=== PATIENT | female | born 1955 | race Hispanic/Latino ===

== ENCOUNTER 2022-10-11 06:15 | Observation (INO) | payer MEDICARE, OTHER ==
[~2022-10-11] VITALS: Ht 160 cm; Wt 59.9 kg
[~2022-10-11 06:15] MED LIST: ASPIR 8181 MG PO; ATORVASTATIN CA40 MG PO; CLOPIDOGREL75 MG PO; ISOSORBIDE MONO30 MG PO; NITROSTAT0.4 MG SL; TOPROL XL25 MG PO
[2022-10-11 06:39] LABS: BASOPHILS # (AUTO) 0.1 (0.0-0.1); EOSINOPHILS # (AUTO) 0.2 (0.0-0.4); EOSINOPHILS % 2.2 % (0.0-6.0); HEMATOCRIT 46.3 % (34.2-44.1); HEMOGLOBIN 14.6 g/dL (12.0-16.0); LYMPHOCYTES # (AUTO) 2.3 (1.0-3.2); LYMPHOCYTES % 32.9 % (18.0-39.1); MEAN CORPUSCULAR HEMOGLOBIN 29.6 pg (28-32); MEAN CORPUSCULAR HGB CONC 31.5 g/dL (31-35); MEAN CORPUSCULAR VOLUME 93.9 fL (81-99); MONOCYTES # (AUTO) 0.6 (0.2-0.8); MONOCYTES % 8.3 % (4.4-11.3); NEUTROPHILS # (AUTO) 3.9 (2.1-6.9); NEUTROPHILS % 55.2 % (38.7-80.0); PLATELET COUNT 264 x10e3/uL (140-360); RED BLOOD COUNT 4.93 x10e6/uL (3.6-5.1); RED CELL DISTRIBUTION WIDTH 12.8 % (11.7-14.4)
[2022-10-11] MEDS ORDERED: ASPIRIN 81 MG CHEW TAB PO ONE (06:45)
[2022-10-11] MEDS ORDERED: METOPROLOL TARTRATE 25 MG TAB PO ONE (06:45)
[2022-10-11] MEDS ORDERED: NITROGLYCERIN 2% OINT 1 GM PKT TOP ONE (06:45)
[2022-10-11 06:47] LABS: INR 0.96
[2022-10-11 06:55] LABS: ALBUMIN 4.6 g/dL (3.5-5.0); ALBUMIN/GLOBULIN RATIO 1.2 (0.8-2.0); CALCIUM 9.3 mg/dL (8.4-10.2); CREATININE, SERUM 0.74 mg/dL (0.57-1.11)
[2022-10-11 07:02] LABS: CREATINE KINASE MB 1.1 ng/mL (0-5.0)
[2022-10-11] MEDS ORDERED: METOPROLOL TARTRATE 25 MG TAB PO SCH (07:45)
[2022-10-11] MEDS ORDERED: ONDANSETRON HCL INJ 2MG/ML 2ML 2 MG/ML VIAL IV PRN (07:45)
[2022-10-11] MEDS ORDERED: Morphine 2mg Syringe 2 MG/ML SYR IV PRN (07:45)
[2022-10-11] MEDS: FAMOTIDINE 20 MG/2 ML VIAL IV SCH ×2 (08:28→21:43)
[2022-10-11] MEDS: ASPIRIN 81 MG ENTERIC COATED PO SCH (08:29)
[2022-10-11] MEDS: ISOSORBIDE MONONITRATE 30 MG TAB CR PO SCH (10:00)
[2022-10-11] MEDS: CLOPIDOGREL BISULFATE 75 MG TAB PO SCH (10:01)
[2022-10-11] MEDS ORDERED: IOPAMIDOL 370 MG/ML 100 ML INFUS..BTL INJ ONE (10:47)
[2022-10-11 13:41] LABS: CREATINE KINASE MB 1.5 ng/mL (0-5.0)
[2022-10-11 14:05] VITALS: BP 117/63
[2022-10-11 15:12] VITALS: BP 117/63
[2022-10-11] MEDS ORDERED: CRESTOR10 MG PO (19:08)
[2022-10-11 20:00] VITALS: BP 115/71
[2022-10-11] MEDS ORDERED: METOPROLOL SUCCINATE 25 MG TAB XL PO SCH (21:00)
[2022-10-11] MEDS ORDERED: ATORVASTATIN 40 MG TAB PO SCH (21:00)
[2022-10-11 22:39] LABS: CREATINE KINASE MB 1.2 ng/mL (0-5.0)
[2022-10-12 05:03] LABS: BASOPHILS # (AUTO) 0.1 (0.0-0.1); BASOPHILS % 0.8 % (0.0-1.0); EOSINOPHILS # (AUTO) 0.2 (0.0-0.4); EOSINOPHILS % 2.4 % (0.0-6.0); HEMATOCRIT 42.3 % (34.2-44.1); HEMOGLOBIN 13.4 g/dL (12.0-16.0); LYMPHOCYTES # (AUTO) 1.8 (1.0-3.2); LYMPHOCYTES % 29.9 % (18.0-39.1); MEAN CORPUSCULAR HEMOGLOBIN 29.8 pg (28-32); MEAN CORPUSCULAR HGB CONC 31.7 g/dL (31-35); MONOCYTES # (AUTO) 0.6 (0.2-0.8); NEUTROPHILS # (AUTO) 3.5 (2.1-6.9); NEUTROPHILS % 57.4 % (38.7-80.0); PLATELET COUNT 260 x10e3/uL (140-360); RED CELL DISTRIBUTION WIDTH 12.9 % (11.7-14.4)
[2022-10-12 06:01] LABS: ALBUMIN 3.6 g/dL (3.5-5.0); ANION GAP 12.7 mmol/L (8-16); CALCIUM 8.6 mg/dL (8.4-10.2); CHOL/HDL RATIO 3.6 (3.0-3.6); CREATININE, SERUM 0.73 mg/dL (0.57-1.11); POTASSIUM 3.7 mmol/L (3.5-5.1)
[2022-10-12 06:16] VITALS: BP 116/65
[2022-10-12 08:28] VITALS: BP 114/75
[2022-10-12 08:48] VITALS: BP 114/75
[2022-10-12] MEDS: FAMOTIDINE 20 MG/2 ML VIAL IV SCH (09:29)
[2022-10-12] MEDS: ASPIRIN 81 MG ENTERIC COATED PO SCH (09:30)
[2022-10-12] MEDS: CLOPIDOGREL BISULFATE 75 MG TAB PO SCH (09:30)
[2022-10-12] MEDS: ISOSORBIDE MONONITRATE 30 MG TAB CR PO SCH (09:30)
== END 2022-10-12 10:55 | disposition home or self-care (01) ==
LOC: ER 06:22 → ERHOLD 07:42 → MED/SURG 14:05
PROVIDERS: ADMIT Internal Medicine; ATTEND Internal Medicine
DX: R07.89 Other chest pain (principal); I10 Essential (primary) hypertension; I25.10 Atherosclerotic heart disease of native coronary artery without angina pectoris; E78.5 Hyperlipidemia, unspecified; K21.9 Gastro-esophageal reflux disease without esophagitis; I25.2 Old myocardial infarction; Z95.5 Presence of coronary angioplasty implant and graft; I16.0 Hypertensive urgency; Z20.822 Contact with and (suspected) exposure to COVID-19
CPT/HCPCS: 0223U; 36415 ×2; 71046; 71260; 80053 ×2; 80061; 82550 ×2; 82553 ×2; 83735; 84484 ×2; 85025 ×2; 85610; 85730; 93005; 99284; G0378 ×2; Q9967